=== PATIENT | female | born 2000 | race Caucasian/White ===

== ENCOUNTER 2023-11-03 23:50 | Inpatient (IN) ==
[2023-11-03] MEDS ORDERED: IOPAMIDOL 100 ML BOTTLE IV ONE (23:51)
[2023-11-04] MEDS: 0.9 % SODIUM CHLORIDE 1,000 ML IV ONE ×2 (00:07→00:56)
[2023-11-04] MEDS: ACETAMINOPHEN 1,000 MG/100 ML BAG IV ONE ×2 (00:07→06:06)
[2023-11-04 00:22] LABS: Basophils # (Auto) 0.04 K/mcL (0.00-0.30); Basophils % (Auto) 0.1 % (0.0-2.0); Eosinophils # (Auto) 0 K/mcL (0.00-0.70); Eosinophils % (Auto) 0 % (0.0-7.0); Hematocrit 40.6 % (34.1-44.9); Hemoglobin 13.8 g/dL (11.2-15.7); Lymphocytes # (Auto) 0.99 K/mcL (1.50-4.80); Lymphocytes % (Auto) 3.5 % (15.5-49.0); Mean Cell Volume 90.6 fL (80.0-100.0); Mean Platelet Volume 9.9 fL (8.8-12.5); Monocytes # (Auto) 1.04 K/mcL (0.10-0.90); Monocytes % (Auto) 3.7 % (1.0-12.0); Platelet Count 240 K/mcL (140-440); RBC 4.48 M/mcL (3.59-5.38); Red Cell Distribution Width 12.8 % (11.5-14.5)
[2023-11-04 00:39] LABS: ALT/SGPT < 5 U/L (<40); AST/SGOT 16 U/L (<32); Albumin 4.2 gm/dL (3.2-5.2); Albumin/Globulin Ratio 1.4 (1.0-2.3); Alkaline Phosphatase 74 U/L (39-117); Bilirubin,Total 0.8 mg/dL (0.1-1.0); Blood Urea Nitrogen 18 mg/dL (6-20); Calcium 9.4 mg/dL (8.6-10.4); Carbon Dioxide 23 mmol/L (22-30); Chloride 95 mmol/L (96-108); Globulin 3.1 gm/dL (2.2-3.7); Glomerular Filtration Rate 70; Glucose 139 mg/dL (70-105)
[2023-11-04] MEDS: cefTRIAXone 1 GM VIAL IV ONE (00:55)
[2023-11-04 00:58] LABS: Appearance,Urine Clear (Clear); Bacteria,Urine Many /hpf (0); Bilirubin,Urine Negative (Negative); Color,Urine Yellow; Culture Indicated,Urine No; Glucose,Urine (UA) Negative (Negative); Ketones,Urine Negative (Negative); Leukocyte Esterase,Urine Small /uL (Negative); Mucus,Urine Few /hpf; Nitrate,Urine Positive (Negative); Protein,Urine 100 mg/dL (Negative); Specific Gravity,Urine 1.025 (1.000-1.035); Urine Blood Moderate ery/mcL (Negative); Urine RBC 7 /hpf (0-3); Urine Squamous Epithelial Cell 7 /hpf (0-4); Urine WBC > 182 /hpf (0-4); Urobilinogen,Urine Normal
[2023-11-04] MEDS: cefTRIAXone 1 GM VIAL IM ONE (01:02)
[2023-11-04] MEDS: ONDANSETRON 4 MG/2 ML VIAL IV ONE (01:34)
[2023-11-04 03:03] LABS: INR 1.4 (0.9-1.1); Partial Thromboplastin Time 43.4 sec (20.0-37.0); Prothrombin Time 17.5 sec (11.9-14.5)
[2023-11-04] MEDS: LACTATED RINGERS 1,000 ML IV SCH ×3 (03:35→15:45)
[2023-11-04] MEDS: KETOROLAC 30 MG/ML VIAL IV ONE (04:20)
[2023-11-04] MEDS ORDERED: fentaNYL 100 MCG/2 ML VIAL IV PRN (04:35)
[2023-11-04] MEDS ORDERED: SENNOSIDES 1 TABLET PO PRN (07:00)
[2023-11-04] MEDS ORDERED: MAGNESIUM HYDROXIDE 30 ML ORAL.SUSP PO PRN (07:00)
[2023-11-04] MEDS ORDERED: ONDANSETRON 4 MG/2 ML VIAL IV PRN (07:00)
[2023-11-04] MEDS ORDERED: HYDROcodone/APAP 5/325MG TABLET PO PRN (07:00)
[2023-11-04] MEDS ORDERED: MELATONIN 3 MG TABLET PO PRN (07:00)
[2023-11-04] MEDS: cefTRIAXone 1 GM VIAL IV SCH ×2 (07:02→09:33)
[2023-11-04 07:41] LABS: Basophils # (Auto) 0.03 K/mcL (0.00-0.30); Basophils % (Auto) 0.1 % (0.0-2.0); Eosinophils # (Auto) 0 K/mcL (0.00-0.70); Eosinophils % (Auto) 0 % (0.0-7.0); Hematocrit 34.4 % (34.1-44.9); Hemoglobin 11.2 g/dL (11.2-15.7); Lymphocytes # (Auto) 1.07 K/mcL (1.50-4.80); Lymphocytes % (Auto) 4.9 % (15.5-49.0); Mean Cell Volume 93.2 fL (80.0-100.0); Mean Corpuscular HGB Conc 32.6 g/dL (31.0-36.0); Mean Platelet Volume 9.8 fL (8.8-12.5); Monocytes # (Auto) 1.58 K/mcL (0.10-0.90); Monocytes % (Auto) 7.3 % (1.0-12.0); Neutrophils % (Auto) 87.1 % (38.0-78.0); Platelet Count 185 K/mcL (140-440); RBC 3.69 M/mcL (3.59-5.38); WBC 21.8 K/mcL (4.5-11.0)
[2023-11-04] MEDS: DOCUSATE SODIUM 100 MG CAPSULE PO SCH (08:05)
[2023-11-04] MEDS: POLYETHYLENE GLYCOL 3350 17 GM PACKET PO SCH (08:05)
[2023-11-04] MEDS: SENNOSIDES 1 TABLET PO SCH (08:05)
[2023-11-04 08:18] LABS: ALT/SGPT 10 U/L (<40); AST/SGOT 19 U/L (<32); Albumin 3.3 gm/dL (3.2-5.2); Albumin/Globulin Ratio 1.4 (1.0-2.3); Alkaline Phosphatase 64 U/L (39-117); Bilirubin,Total 0.4 mg/dL (0.1-1.0); Blood Urea Nitrogen 16 mg/dL (6-20); Calcium 8.2 mg/dL (8.6-10.4); Carbon Dioxide 22 mmol/L (22-30); Chloride 103 mmol/L (96-108); Globulin 2.4 gm/dL (2.2-3.7); Glomerular Filtration Rate 103; Glucose 111 mg/dL (70-105)
[2023-11-04] MEDS: 0.9 % SODIUM CHLORIDE 10 ML SYRINGE IV SCH (13:11)
[2023-11-04] MEDS: LACTATED RINGERS 1,000 ML IV ONE (13:22)
[2023-11-04] MEDS ORDERED: cefTRIAXone 1 GM VIAL IV SCH (16:00)
[2023-11-04 16:05] LABS: Amphetamine Screen,Urine Suspect positive; Barbiturate Screen,Urine None detected; Benzodiazepines Screen,Urine None detected; Cannabinoid Screen,Urine None detected; Cocaine Screen,Urine None detected; Opiate Screen,Urine None detected; Oxycodone, Urine Screen None detected; Phencyclidine Screen,Urine None detected
[2023-11-04] MEDS: KETOROLAC 30 MG/ML VIAL IV PRN (16:09)
[2023-11-04] MEDS: ACETAMINOPHEN 325 MG TABLET PO SCH (16:43)
[2023-11-04] MEDS: LORazepam 0.5 MG TABLET PO SCH (17:12)
[2023-11-04] MEDS: ENOXAPARIN 40 MG/0.4 ML SYRINGE SQ SCH (21:00)
[2023-11-04] MEDS: ACETAMINOPHEN 325 MG TABLET PO PRN (23:44)
[2023-11-05 06:37] LABS: Basophils # (Auto) 0.02 K/mcL (0.00-0.30); Basophils % (Auto) 0.1 % (0.0-2.0); Eosinophils # (Auto) 0.02 K/mcL (0.00-0.70); Eosinophils % (Auto) 0.1 % (0.0-7.0); Hematocrit 33.8 % (34.1-44.9); Hemoglobin 11.2 g/dL (11.2-15.7); Lymphocytes # (Auto) 1.01 K/mcL (1.50-4.80); Lymphocytes % (Auto) 7.4 % (15.5-49.0); Mean Cell Volume 92.6 fL (80.0-100.0); Mean Corpuscular HGB Conc 33.1 g/dL (31.0-36.0); Mean Platelet Volume 10.8 fL (8.8-12.5); Monocytes # (Auto) 0.85 K/mcL (0.10-0.90); Monocytes % (Auto) 6.2 % (1.0-12.0); Neutrophils % (Auto) 85.1 % (38.0-78.0); Platelet Count 185 K/mcL (140-440); RBC 3.65 M/mcL (3.59-5.38); Red Cell Distribution Width 13.5 % (11.5-14.5); WBC 13.6 K/mcL (4.5-11.0)
[2023-11-05 07:14] LABS: ALT/SGPT 37 U/L (<40); AST/SGOT 41 U/L (<32); Albumin 2.9 gm/dL (3.2-5.2); Albumin/Globulin Ratio 1.2 (1.0-2.3); Alkaline Phosphatase 155 U/L (39-117); Bilirubin,Total 0.4 mg/dL (0.1-1.0); Blood Urea Nitrogen 16 mg/dL (6-20); Calcium 8.6 mg/dL (8.6-10.4); Carbon Dioxide 23 mmol/L (22-30); Chloride 104 mmol/L (96-108); Globulin 2.5 gm/dL (2.2-3.7); Glomerular Filtration Rate 121; Glucose 105 mg/dL (70-105)
[2023-11-05] MEDS ORDERED: cefTRIAXone 1 GM VIAL IV SCH (07:30)
[2023-11-05] MEDS: cefTRIAXone 2 GM in DEXTROSE 5% IN WATER 50 ML IV SCH (08:45)
[2023-11-05] MEDS: CEFEPIME 2 GM VIAL IV SCH (17:25)
[2023-11-05] MEDS: diphenhydrAMINE 50 MG/ML VIAL IV ONE (19:17)
[2023-11-05] MEDS: CEFEPIME 2 GM VIAL ONE (23:50)
[2023-11-05] MEDS: SODIUM CHLORIDE 0.9% IV SCH (23:50)
[2023-11-05] MEDS: CEFEPIME IV SCH (23:50)
[2023-11-06 06:30] LABS: Basophils # (Auto) 0.02 K/mcL (0.00-0.30); Basophils % (Auto) 0.2 % (0.0-2.0); Eosinophils # (Auto) 0.01 K/mcL (0.00-0.70); Eosinophils % (Auto) 0.1 % (0.0-7.0); Hematocrit 32.5 % (34.1-44.9); Hemoglobin 10.6 g/dL (11.2-15.7); Lymphocytes # (Auto) 1.35 K/mcL (1.50-4.80); Lymphocytes % (Auto) 16.5 % (15.5-49.0); Mean Cell Volume 93.7 fL (80.0-100.0); Mean Corpuscular HGB Conc 32.6 g/dL (31.0-36.0); Mean Platelet Volume 10.5 fL (8.8-12.5); Monocytes % (Auto) 7.3 % (1.0-12.0); Neutrophils % (Auto) 75.7 % (38.0-78.0); Platelet Count 188 K/mcL (140-440); RBC 3.47 M/mcL (3.59-5.38); Red Cell Distribution Width 13.5 % (11.5-14.5); WBC 8.2 K/mcL (4.5-11.0)
[2023-11-06 06:47] LABS: ALT/SGPT 29 U/L (<40); AST/SGOT 26 U/L (<32); Albumin 2.9 gm/dL (3.2-5.2); Alkaline Phosphatase 125 U/L (39-117); Bilirubin,Total 0.3 mg/dL (0.1-1.0); Blood Urea Nitrogen 14 mg/dL (6-20); Calcium 8.4 mg/dL (8.6-10.4); Carbon Dioxide 23 mmol/L (22-30); Chloride 104 mmol/L (96-108); Globulin 2.8 gm/dL (2.2-3.7); Glomerular Filtration Rate 121; Glucose 96 mg/dL (70-105)
[2023-11-06] MEDS: LEVOFLOXACIN 750 MG/150 ML BAG IV SCH (10:24)
[2023-11-07] MEDS: IBUPROFEN 800 MG TABLET PO PRN (00:50)
[2023-11-07 06:11] LABS: Basophils # (Auto) 0.02 K/mcL (0.00-0.30); Basophils % (Auto) 0.3 % (0.0-2.0); Eosinophils # (Auto) 0.03 K/mcL (0.00-0.70); Eosinophils % (Auto) 0.5 % (0.0-7.0); Hematocrit 34.8 % (34.1-44.9); Hemoglobin 11.6 g/dL (11.2-15.7); Lymphocytes # (Auto) 1.67 K/mcL (1.50-4.80); Lymphocytes % (Auto) 25.6 % (15.5-49.0); Mean Cell Volume 91.8 fL (80.0-100.0); Mean Corpuscular HGB Conc 33.3 g/dL (31.0-36.0); Mean Platelet Volume 10.3 fL (8.8-12.5); Monocytes # (Auto) 0.86 K/mcL (0.10-0.90); Monocytes % (Auto) 13.2 % (1.0-12.0); Neutrophils % (Auto) 59.9 % (38.0-78.0); Platelet Count 207 K/mcL (140-440); RBC 3.79 M/mcL (3.59-5.38); Red Cell Distribution Width 13.6 % (11.5-14.5); WBC 6.5 K/mcL (4.5-11.0)
[2023-11-07 06:28] LABS: ALT/SGPT 21 U/L (<40); AST/SGOT 23 U/L (<32); Albumin 2.8 gm/dL (3.2-5.2); Albumin/Globulin Ratio 0.9 (1.0-2.3); Alkaline Phosphatase 111 U/L (39-117); Bilirubin,Total 0.2 mg/dL (0.1-1.0); Blood Urea Nitrogen 10 mg/dL (6-20); Calcium 8.2 mg/dL (8.6-10.4); Carbon Dioxide 24 mmol/L (22-30); Chloride 105 mmol/L (96-108); Glomerular Filtration Rate 127; Glucose 110 mg/dL (70-105)
[2023-11-09 08:12] LABS: Amphetamine Screen Positive
== END 2023-11-08 13:45 | disposition home or self-care (01) | DRG 872 ==
LOC: ED 23:50 → MEDSUR 11-04 05:24
PROVIDERS: ADMIT Student in an Organized Health Care Education/Training Program; ATTEND Internal Medicine